=== PATIENT | male | born 1970 | race Caucasian/White ===

== ENCOUNTER 2018-10-16 16:45 | Observation (INO) | payer SELFPAY ==
[2018-10-16 17:15] LABS: ABSOLUTE BASOPHILS # (AUTO) 0.1 10^3/uL (0.0-0.2); ABSOLUTE EOSINOPHILS # (AUTO) 0.1 10^3/uL (0.0-0.6); ABSOLUTE LYMPHOCYTES (AUTO) 0.7 10^3/uL (0.5-4.7); ABSOLUTE MONOCYTES (AUTO) 0.7 10^3/uL (0.1-1.4); ABSOLUTE NEUT (AUTO) 4.9 10^3/uL (1.7-8.2); BASOPHILS % (AUTO) 0.9 % (0-2); EOSINOPHILS % (AUTO) 1.2 % (0-6); HEMATOCRIT 40.8 % (37.9-51.0); HEMOGLOBIN 14.4 g/dL (13.5-17.0); LYMPHOCYTES % (AUTO) 10.5 % (13-45); MEAN CORPUSCULAR HEMOGLOBIN 35.5 pg (27.0-33.4); MEAN CORPUSCULAR HGB CONC 35.3 g/dL (32.0-36.0); MEAN CORPUSCULAR VOLUME 101 fl (80-97); MONOCYTES % (AUTO) 10.2 % (3-13); PLATELET COUNT 127 10^3/uL (150-450); RED BLOOD COUNT 4.06 10^6/uL (4.35-5.55); RED CELL DISTRIBUTION WIDTH 14.1 % (11.5-14.0); SEGMENTED NEUTROPHILS % (AUTO) 77.2 % (42-78); TOTAL CELLS COUNTED % (AUTO) 100 %; WHITE BLOOD COUNT 6.4 10^3/uL (4.0-10.5)
[2018-10-16] MEDS ORDERED: NORMAL SALINE 1000 ML 1,000 ML IV ONE (17:21)
[2018-10-16] MEDS ORDERED: NITROGLYCERIN 2% OINTMENT 1 GM PACKET TP ONE (17:22)
--- NOTE | 2018-10-16 17:35 | RADIOLOGY REPORT (SQ) ---
EXAM DESCRIPTION: CHEST SINGLE VIEW COMPLETED DATE/TIME: 10/16/2018 5:27 pm REASON FOR STUDY: chest pain COMPARISON: None. EXAM PARAMETERS: NUMBER OF VIEWS: One view. TECHNIQUE: Single frontal radiographic view of the chest acquired. RADIATION DOSE: NA LIMITATIONS: None. FINDINGS: LUNGS AND PLEURA: No opacities, masses or pneumothorax. No pleural effusion. MEDIASTINUM AND HILAR STRUCTURES: No masses. Contour normal. HEART AND VASCULAR STRUCTURES: Heart normal in size. Normal vasculature. BONES: No acute findings. HARDWARE: None in the chest. OTHER: No other significant finding. IMPRESSION: NO ACUTE RADIOGRAPHIC FINDING IN THE CHEST. TECHNICAL DOCUMENTATION: JOB ID: [id number] [employer]- All Rights Reserved Reading location - IP/workstation name: [email or web address]
[2018-10-16 17:43] LABS: ALANINE AMINOTRANSFERASE 66 U/L (21-72); ALBUMIN 4.3 g/dL (3.5-5.0); ALKALINE PHOSPHATASE 116 U/L (38-126); ANION GAP 18 (5-19); ASPARTATE AMINO TRANSFERASE 62 U/L (17-59); BILIRUBIN,DIRECT 0.4 mg/dL (0.0-0.4); BILIRUBIN,TOTAL 0.9 mg/dL (0.2-1.3); BLOOD UREA NITROGEN 6 mg/dL (7-20); CALCIUM 9.8 mg/dL (8.4-10.2); CARBON DIOXIDE 19 mmol/L (22-30); CHLORIDE 91 mmol/L (98-107); CREATINE KINASE 136 U/L (55-170); GLUCOSE 98 mg/dL (75-110); POTASSIUM 3.2 mmol/L (3.6-5.0); SODIUM 127.9 mmol/L (137-145); TOTAL PROTEIN 7.7 g/dL (6.3-8.2)
[2018-10-16 17:58] LABS: CREATINE KINASE MB 1.04 ng/mL (<4.55)
[2018-10-16 18:00] LABS: TROPONIN I < 0.012 ng/mL
[2018-10-16 18:13] LABS: LIPASE 66.8 U/L (23-300)
[2018-10-16] MEDS ORDERED: THIAMINE HCL 100 MG TABLET PO ONE ×2 (19:33→23:00)
[2018-10-16] MEDS ORDERED: POTASSIUM CHLORIDE 20 MEQ/15 ML UDCUP PO ONE (19:33)
--- NOTE | 2018-10-16 20:40 | ER Document Report ---
ED General - General Chief Complaint: Chest Pain Stated Complaint: CHEST PAIN Time Seen by Provider: 10/16/18 17:13 - HPI Notes: Patient is a 48-year-old gentleman who presents to the emergency department for evaluation of left-sided chest pain. It started at approximately 11 PM last night. He states it got worse today. He has had some associated shortness of breath and nausea with it. Never had pain like this prior. He was given aspirin and nitroglycerin in route via EMS and had complete resolution of his pain. - Related Data Allergies/Adverse Reactions: Penicillins Allergy (Verified 10/16/18 17:45) Past Medical History - General Information source: Patient - Social History Smoking Status: Current Every Day Smoker Frequency of alcohol use: Heavy - Drinks 6-8 beers daily, has for 20 years Drug Abuse: Marijuana Family History: Other - Brain aneurysm in mother. Father's family history u nknown. Patient has suicidal ideation: No Patient has homicidal ideation: No - Medical History Medical History: Other - Dwarfism Renal/ Medical History: Denies: Hx Peritoneal Dialysis Review of Systems - Review of Systems Constitutional: No symptoms reported EENT: No symptoms reported Cardiovascular: See HPI Respiratory: See HPI Gastrointestinal: No symptoms reported Genitourinary: No symptoms reported Musculoskeletal: No symptoms reported Skin: No symptoms reported Hematologic/Lymphatic: No symptoms reported Physical Exam - Vital signs Vitals: Resp Pulse Ox 22 H 100 10/16/18 16:51 10/16/18 16:51 - Notes Notes: Vital signs reviewed, please see chart. 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 Head is normocephalic and atraumatic. Pupils are equal, round, reactive to light. Oral mucosa is moist. Heart is regular rate and rhythm, lungs are clear to oscillation bilaterally. Chest wall is nontender. Abdomen is soft, nontender, normoactive bowel sounds. Extremities without cyanosis or clubbing. Some nonpitting edema noted to bilateral calves. No posterior calf tenderness. Peripheral pulses are equal. Vision is awake and alert, slightly disheveled, but cooperative with examiner. Course - Re-evaluation Re-evalutation: 10/16/18 20:50 Patient presents emergency department for evaluation of chest pain. It is left- sided. He does not see a doctor regularly. He has not had any screening for his elevated blood pressure or for lipid levels. He is unaware of his family history. Laboratory investigations revealed hypokalemia, hyponatremia. Patient was given IV fluids, potassium. He was given thiamine secondary to his heavy alcohol intake. He is found to have an elevated alcohol level as well. He was chest pain-free after sublingual nitroglycerin in route. He was given nitro patient remained chest pain-free throughout the course of his stay. Continue to monitor. 10/16/18 22:12 Patient's repeat troponin was negative. He remained hypertensive, heart rate came down to the 90s after fluid resuscitation. I spoke with Dr. Anglin at 2150, he will accept the patient for further care. - Vital Signs Vital signs: Temp Pulse Resp BP Pulse Ox 98.8 F 120 H 14 158/104 H 99 10/16/18 17:03 10/16/18 17:03 10/16/18 20:01 10/16/18 20:01 10/16/18 20:01 - Laboratory Result Diagrams: 10/16/18 16:58 10/16/18 16:58 Laboratory results interpreted by me: 10/16/18 10/16/18 16:58 16:58 RBC 4.06 L MCV 101 H MCH 35.5 H RDW 14.1 H Plt Count 127 L Lymphocytes % 10.5 L Sodium 127.9 L Potassium 3.2 L Chloride 91 L Carbon Dioxide 19 L BUN 6 L AST 62 H - Diagnostic Test Radiology reviewed: Reports reviewed - No acute cardiopulmonary disease - EKG Interpretation by Me Additional EKG results interpreted by me: 10/16/18 20:50 Sinus tachycardia with a rate of 111 bpm. Right axis deviation. No acute ST changes concerning for ischemia or infarction. Discharge - Discharge Clinical Impression: Chest pain, Hypokalemia, Alcohol dependence with intoxication Condition: Stable Disposition: ADMITTED OBSERVATION Admitting Provider: Clementina Anglin Unit Admitted: Telemetry
--- NOTE | 2018-10-16 21:49 | EKG REPORT ---
SEVERITY:- ABNORMAL ECG - SINUS TACHYCARDIA BIATRIAL ABNORMALITIES LEFT POSTERIOR FASCICULAR BLOCK CONSIDER LEFT VENTRICULAR HYPERTROPHY ST ELEV, PROBABLE NORMAL EARLY REPOL PATTERN : Confirmed by: Herlinda Araujo MD 16-Oct-2018 21:48:53
[2018-10-16] MEDS ORDERED: ACETAMINOPHEN 325 MG TABLET PO PRN (22:03)
[2018-10-16] MEDS ORDERED: NITROGLYCERIN 0.4 MG/TAB 25 TAB/BOTTLE SL PRN (22:03)
[2018-10-16] MEDS ORDERED: MAG HYDROX/AL HYDROX/SIMETH SUSP 30 ML UDCUP PO PRN (22:03)
[2018-10-16] MEDS ORDERED: LORAZEPAM 1 MG TABLET PO PRN (22:05)
[2018-10-16] MEDS ORDERED: ATORVASTATIN CALCIUM 40 MG TABLET PO ONE (23:00)
[2018-10-16] MEDS ORDERED: FOLIC ACID 1 MG TABLET PO ONE (23:00)
[2018-10-16] MEDS ORDERED: SUCRALFATE 1 GM TABLET PO ONE (23:00)
--- NOTE | 2018-10-17 05:15 | PDOC H&P ---
History of Present Illness Admission Date/PCP: 10/16/18 22:18 Patient complains of: Left-sided chest pain History of Present Illness: CHAD SANCHEZ is a 48 year old male with a past medical history of dwarfism, hypertension and tobacco dependence. Patient presents with 7 days of intermittent chest pain initially occurred with strenuous physical lifting. It is dull in nature radiating to the left arm, it is 4 out of 5 intensity with increasing frequency with exertion. Associated with palpitations but no nausea vomiting or shortness of breath. He denies previous episode, previous cardiac stress test, recent change in medications and is otherwise felt well. In the emergency room is found to have uncontrolled blood pressure 170 systolic, hyponatremia and hypokalemia. Patient does have alcohol dependence developing tremor each morning without drinking his habitual 6-8 beers. Past Medical History Medical History: None Cardiac Medical History: Reports: Hypertension Psychiatric Medical History: Reports: Alcohol Dependency, Tobacco Dependency Denies: Depression Past Surgical History Past Surgical History: Reports: Cholecystectomy Social History Information Source: Patient Smoking Status: Current Every Day Smoker Frequency of Alcohol Use: Heavy Hx Recreational Drug Use: No Drugs: Marijuana Hx Prescription Drug Abuse: No - Advance Directive Resuscitation Status: Full Code Family History Family History: Other - Brain aneurysm in mother. Father's family history unknown. Parental Family History Reviewed: Yes Children Family History Reviewed: Yes Sibling(s) Family History Reviewed.: Yes Medication/Allergy Home Medications: No Home Medications 10/16/18 Allergies/Adverse Reactions: Penicillins Allergy (Verified 10/16/18 17:45) Review of Systems Constitutional: ABSENT: chills, fever(s), headache(s), weight gain, weight loss Eyes: ABSENT: visual disturbances Ears: ABSENT: hearing changes Cardiovascular: ABSENT: chest pain, dyspnea on exertion, edema, orthropnea, palpitations Respiratory: ABSENT: cough, hemoptysis Gastrointestinal: ABSENT: abdominal pain, constipation, diarrhea, hematemesis, hematochezia, nausea, vomiting Genitourinary: ABSENT: dysuria, hematuria Musculoskeletal: ABSENT: joint swelling Integumentary: ABSENT: rash, wounds Neurological: ABSENT: abnormal gait, abnormal speech, confusion, dizziness, focal weakness, syncope Psychiatric: ABSENT: anxiety, depression, homidical ideation, suicidal ideation Endocrine: ABSENT: cold intolerance, heat intolerance, polydipsia, polyuria Hematologic/Lymphatic: ABSENT: easy bleeding, easy bruising Physical Exam Vital Signs: Temp Pulse Resp BP Pulse Ox 99.7 F 91 16 145/85 H 97 10/17/18 03:18 10/17/18 03:18 10/17/18 03:18 10/17/18 03:18 10/17/18 03:18 Intake & Output 10/15/18 10/16/18 10/17/18 11:59 11:59 11:59 Intake Total 1000 Balance 1000 Weight 45.9 kg General appearance: PRESENT: no acute distress, well-developed, well-nourished Head exam: PRESENT: atraumatic, normocephalic Eye exam: PRESENT: conjunctiva pink, EOMI, PERRLA. ABSENT: scleral icterus Ear exam: PRESENT: normal external ear exam Mouth exam: PRESENT: moist, tongue midline Neck exam: ABSENT: carotid bruit, JVD, lymphadenopathy, thyromegaly Respiratory exam: PRESENT: clear to auscultation garry. ABSENT: rales, rhonchi, wheezes Cardiovascular exam: PRESENT: RRR. ABSENT: diastolic murmur, rubs, systolic murmur Pulses: PRESENT: normal dorsalis pedis pul Vascular exam: PRESENT: normal capillary refill GI/Abdominal exam: PRESENT: normal bowel sounds, soft. ABSENT: distended, guarding, mass, organolmegaly, rebound, tenderness Rectal exam: PRESENT: deferred Extremities exam: PRESENT: full ROM. ABSENT: calf tenderness, clubbing, pedal edema Neurological exam: PRESENT: alert, awake, oriented to person, oriented to place, oriented to time, oriented to situation, CN II-XII grossly intact. ABSENT: motor sensory deficit Psychiatric exam: PRESENT: appropriate affect, normal mood. ABSENT: homicidal ideation, suicidal ideation Skin exam: PRESENT: dry, intact, warm. ABSENT: cyanosis, rash Results Laboratory Results: 10/16/18 16:58 10/16/18 16:58 10/16/18 10/16/18 10/16/18 16:58 16:58 16:58 WBC 6.4 RBC 4.06 L Hgb 14.4 Hct 40.8 MCV 101 H MCH 35.5 H MCHC 35.3 RDW 14.1 H Plt Count 127 L Seg Neutrophils % 77.2 Lymphocytes % 10.5 L Monocytes % 10.2 Eosinophils % 1.2 Basophils % 0.9 Absolute Neutrophils 4.9 Absolute Lymphocytes 0.7 Absolute Monocytes 0.7 Absolute Eosinophils 0.1 Absolute Basophils 0.1 Sodium 127.9 L Potassium 3.2 L Chloride 91 L Carbon Dioxide 19 L Anion Gap 18 BUN 6 L Creatinine 0.52 Est GFR ( Amer) > 60 Est GFR (Non-Af Amer) > 60 Glucose 98 Calcium 9.8 Magnesium 2.0 Total Bilirubin 0.9 AST 62 H ALT 66 Alkaline Phosphatase 116 Total Protein 7.7 Albumin 4.3 Lipase 66.8 10/16/18 10/16/18 10/16/18 16:58 16:58 20:15 Creatine Kinase 136 CK-MB (CK-2) 1.04 Troponin I < 0.012 < 0.012 10/16/18 10/17/18 20:15 02:13 Creatine Kinase 108 CK-MB (CK-2) Troponin I < 0.012 Impressions: Chest X-Ray 10/16/18 17:05 IMPRESSION: NO ACUTE RADIOGRAPHIC FINDING IN THE CHEST. Assessment and Plan - Diagnosis (1) Chest pain Is this a current diagnosis for this admission?: Yes Plan: Chest pain care set, follow-up Cardiolite stress test. (2) Alcohol dependence with intoxication Is this a current diagnosis for this admission?: Yes Plan: Thiamine, folate, Ativan as needed (3) Hypokalemia Is this a current diagnosis for this admission?: Yes Plan: Likely secondary to inadequate intake. Repletion and reevaluation. (4) Hyponatremia Is this a current diagnosis for this admission?: Yes Plan: Likely secondary to excessive beer intake. Follow-up chemistry consider fluid restriction. - Time Time Spent with patient: 25-34 minutes - Inpatient Certification Medical Necessity: Need Close Monitoring Due to Risk of Patient Decompensation
[2018-10-17] MEDS: FAMOTIDINE 20 MG TABLET PO SCH ×2 (09:51→10:57)
[2018-10-17] MEDS: CYANOCOBALAMIN (VITAMIN B-12) 1,000 MCG TABLET PO SCH ×2 (09:51→10:57)
[2018-10-17] MEDS: ASPIRIN 81 MG TABLET, ENT COATED PO SCH ×2 (09:51→10:57)
[2018-10-17 12:54] LABS: ANION GAP 12 (5-19); BLOOD UREA NITROGEN 6 mg/dL (7-20); CALCIUM 9.1 mg/dL (8.4-10.2); CARBON DIOXIDE 18 mmol/L (22-30); CHLORIDE 101 mmol/L (98-107); GLUCOSE 113 mg/dL (75-110); POTASSIUM 3.5 mmol/L (3.6-5.0); SODIUM 130.6 mmol/L (137-145)
[2018-10-17 14:13] VITALS: BP 145/85
[2018-10-17] MEDS ORDERED: REGADENOSON INJ 0.4 MG/5 ML DISP.SYRIN IV ONE (14:49)
--- NOTE | 2018-10-17 18:15 | PDOC DISCHARGE SUMMARY ---
General - Admit/Disc Date/PCP Admission Date/Primary Care Provider: 10/16/18 22:18 Discharge Date: 10/17/18 - Discharge Diagnosis (1) Chest pain Is this a current diagnosis for this admission?: Yes Summary: NM ruled out. Troponins negative x3, stress test was negative. Was recommended that he take a baby aspirin every day. (2) Hypertension Is this a current diagnosis for this admission?: Yes Summary: Started lisinopril. Encouraged him to get primary [facility]. (3) Alcohol dependence with intoxication Is this a current diagnosis for this admission?: Yes Summary: No signs of withdrawal here, but he says that if he does not drink his usual 6-8 beers a day that he gets "the shakes." Strongly encouraged a medically supervised withdrawal, but he was not interested at this time. (4) Hypokalemia Is this a current diagnosis for this admission?: Yes Summary: Resolved with supplementation (5) Hyponatremia Is this a current diagnosis for this admission?: Yes Summary: Resolved with IV fluids, possibly induced by his alcohol consumption. - Additional Information Resuscitation Status: Full Code Discharge Diet: Cardiac Discharge Activity: Activity As Tolerated Prescriptions: Lisinopril [Prinivil 10 mg Tablet] 10 mg PO DAILY #30 tablet Home Medications: Lisinopril [Prinivil 10 mg Tablet] 10 mg PO DAILY #30 tablet 10/17/18 History of Present Illness History of Present Illness: CHAD SANCHEZ is a 48 year old male with a past medical history of dwarfism, hypertension and tobacco dependence. Patient presents with 7 days of intermittent chest pain initially occurred with strenuous physical lifting. It is dull in nature radiating to the left arm, it is 4 out of 5 intensity with increasing frequency with exertion. Associated with palpitations but no nausea vomiting or shortness of breath. He denies previous episode, previous cardiac stress test, recent change in medications and is otherwise felt well. In the emergency room is found to have uncontrolled blood pressure 170 systolic, hyponatremia and hypokalemia. Patient does have alcohol dependence developing tremor each morning without drinking his habitual 6-8 beers. Hospital Course Hospital Course: He has some electrolyte disturbances were corrected with IV fluids and supplementation. He was monitored for signs of withdrawal. His troponins were negative x3 and he had a negative stress test. His blood pressure was elevated we started him on lisinopril. We advised him to take a baby aspirin every day. He does not have insurance or a primary care provider, so we recommended that he get follow[facility]up with [facility]. His labs and examination were reassuring he was discharged in good condition. Physical Exam Vital Signs: Temp Pulse Resp BP Pulse Ox 98.9 F 92 16 145/85 H 93 10/17/18 14:11 10/17/18 14:11 10/17/18 14:11 10/17/18 14:11 10/17/18 14:11 Intake & Output 10/16/18 10/17/18 10/18/18 06:59 06:59 06:59 Intake Total 1000 Balance 1000 Weight 45.9 kg General appearance: PRESENT: no acute distress, cooperative, disheveled Respiratory exam: PRESENT: clear to auscultation garry, symmetrical, unlabored. ABSENT: accessory muscle use, crackles, prolonged expiratory phas, rhonchi, tachypnea, wheezes Cardiovascular exam: PRESENT: RRR, +S1, +S2 Pulses: PRESENT: normal carotid pulses Vascular exam: PRESENT: normal capillary refill GI/Abdominal exam: PRESENT: normal bowel sounds, soft. ABSENT: distended, guarding, rebound, tenderness Extremities exam: ABSENT: clubbing, pedal edema Musculoskeletal exam: PRESENT: normal inspection. ABSENT: deformity Neurological exam: PRESENT: alert, awake, oriented to person, oriented to place, oriented to time, oriented to situation Psychiatric exam: PRESENT: appropriate affect, normal mood Skin exam: PRESENT: dry, warm Results Laboratory Results: 10/16/18 16:58 10/17/18 10:47 10/16/18 10/17/18 16:58 10:47 Sodium 130.6 L Potassium 3.5 L Chloride 101 Carbon Dioxide 18 L Anion Gap 12 BUN 6 L Creatinine 0.49 L Est GFR ( Amer) > 60 Est GFR (Non-Af Amer) > 60 Glucose 113 H Calcium 9.1 Magnesium 2.0 Lipase 66.8 10/16/18 10/16/18 10/16/18 16:58 16:58 20:15 Creatine Kinase 136 CK-MB (CK-2) 1.04 Troponin I < 0.012 < 0.012 10/16/18 10/17/18 10/17/18 20:15 02:13 10:47 Creatine Kinase 108 CK-MB (CK-2) Troponin I < 0.012 < 0.012 Impressions: Chest X-Ray 10/16/18 17:05 IMPRESSION: NO ACUTE RADIOGRAPHIC FINDING IN THE CHEST. Qualifiers - * PATIENT BEING DISCHARGED WITH ANY OF THE FOLLOWING DIAGNOSIS: No
[2018-10-17] MEDS ORDERED: ATORVASTATIN CALCIUM 40 MG TABLET PO SCH (22:00)
--- NOTE | 2018-10-20 17:04 | DRAGON STRESS TEST REPORT ---
Intravenous Lexiscan Cardiolite stress test using single photon emmision computerized tomography. Date of procedure: 10/17/2018. Ordering Provider: Dr. Latasha Anglin. Patient's status: Patient Indication: Chest pain. Coronary risk factors: Age, hypertension, dyslipidemia, and tobacco abuse disorder. Resting EKG: Stress EKG:[ No changes of ischemia. Reason for termination: Protocol. Conclusions: Normal EKG and hemodynamic response to IV Lexiscan. Nuclear data: At rest the patient was given 10.34 millicuries of technetium 99m sestamibi injected intravenously. As per protocol rest non gated SPECT images were obtained. Subsequently the patient was given intravenous Lexiscan at a dose of 0.4 mg in 5 mL intravenously, followed by flush with normal saline. Subsequently the stress dose of 31.8 millicuries of technetium 99m sestamibi was injected intravenously. As per protocol stress gated images were obtained. Nuclear interpretation: Review of images showed that all segments of the myocardium had normal perfusion at rest, and normal perfusion post stress with IV Lexiscan. All segments of the myocardium had normal motion, contraction, and thickening by gated study. T. I D. ratio was normal at 1.17. There is no transient ischemic dilatation of the left ventricle. Computer read rest, and stress left ventricular ejection fraction were 60 %, and 60 %, respectively. Conclusion: 1. There is no scintigraphic evidence of Lexiscan induced myocardial ischemia. 2. There is no scintigraphic evidence of myocardial infarction/scar. Recommendations: Aggressive risk factor modification, and treating the underlying co- morbidities. MTDD
== END 2018-10-17 18:05 | disposition home or self-care (01) ==
LOC: ER 16:45 → EH 22:18 → 4S 10-17 00:20
PROVIDERS: ADMIT Internal Medicine; ATTEND Internal Medicine
DX: R07.9 Chest pain, unspecified (principal); I10 Essential (primary) hypertension; F10.229 Alcohol dependence with intoxication, unspecified; E87.6 Hypokalemia; E87.1 Hypo-osmolality and hyponatremia; F10.288 Alcohol dependence with other alcohol-induced disorder; R25.1 Tremor, unspecified; R00.0 Tachycardia, unspecified; F17.200 Nicotine dependence, unspecified, uncomplicated; E34.3 Short stature due to endocrine disorder; F12.10 Cannabis abuse, uncomplicated; Z79.899 Other long term (current) drug therapy; Z90.49 Acquired absence of other specified parts of digestive tract
CPT/HCPCS: 93005; 99285; 96360; 36415 ×2; 82553; 80307; 82550; 83690; 83735; 85025; 80048; 80053; 84484 ×2; 93017; 71045; 78452; 93010; G0378 ×3; A9500; J2785; J7030